=== PATIENT | female | born 1995 | race Asian ===

== ENCOUNTER 2021-07-08 20:54 | Emergency (ER) | payer OTHER ==
[~2021-07-08] VITALS: Ht 165.1 cm; Wt 114.0 kg
[2021-07-08 21:19] VITALS: BP 130/91
== END 2021-07-08 21:42 | disposition left against medical advice (07) ==
LOC: ER 20:54
DX: Z53.21 Procedure and treatment not carried out due to patient leaving prior to being seen by health care provider (principal)